=== PATIENT | male | born 1955 | race Caucasian/White ===

== ENCOUNTER 2018-07-20 10:14 | Inpatient (IN) ==
[2018-07-20] MEDS ORDERED: methylPREDNISolone SOD SUC 125 MG/2 ML VIAL IV STA (10:33)
[2018-07-20] MEDS ORDERED: ONDANSETRON 4 MG/2 ML VIAL IV ONE (10:33)
[2018-07-20] MEDS ORDERED: ALBUTEROL/IPRATROPIUM 3 ML NEB RESP TX STA (10:33)
[2018-07-20] MEDS ORDERED: ALBUTEROL 2.5 MG/3 ML NEB RESP TX STA (10:33)
[2018-07-20] MEDS ORDERED: ASPIRIN 325 MG TABLET PO STA (10:33)
[2018-07-20 10:45] LABS: Basophils # 0.1 10*3/uL (0.0-0.2); Eosinophils # 0.1 10*3/uL (0.0-0.87); Eosinophils % 0.8 % (0.00-10.9); Hematocrit 38.5 VOL% (42.0-52.0); Hemoglobin 12.7 GM/DL (14.0-18.0); Immature Granulocytes % 0.8 %; Immature Granulocytes Absolute 0.05 #; Lymphocytes # 1.1 10*3/uL (1.4-4.0); Mean Corpuscular Volume 94.4 FL (87-102); Mean Platelet Volume 8.8 FL (9.6-12.0); Monocytes % 9.9 % (1.7-12.7); Neutrophils % 69.5 % (38.7-73.9); Platelet Count 147 T/CUMM (130-400); Red Blood Count 4.08 MC/CUMM (3.8-5.5); Red Cell Distribution Width 14.5 % (9.3-17.3); White Blood Count 6.3 T/CUMM (4-12)
[2018-07-20 10:49] LABS: PT Patient Result 10.4 SECS
[2018-07-20] MEDS ORDERED: DILTIAZEM 50 MG/10 ML VIAL IV STA (10:52)
[2018-07-20 11:00] LABS: Alanine Aminotransferase 46 U/L (16-61); Albumin 3.9 G/DL (3.4-5.0); Alkaline Phosphatase 88 U/L (45-117); Aspartate Amino Transferase 60 U/L (0-37); Blood Urea Nitrogen 5 MG/DL (7-18); Calcium 8.8 MG/DL (8.5-10.1); Glucose 86 MG/DL (74-106); Total Protein 7.7 G/DL (6.4-8.3); Troponin I < 0.015 NG/ML (0.00-0.045)
[2018-07-20 11:06] LABS: ABG Base Excess 4.7 MMOL/L (-2.5-2.5); ABG HCO3 29.1 MMOL/L (20-26); ABG Oxygen Saturation 87.7 % (95-100); ABG PCO2 42.5 MM HG (35-48); ABG PH 7.454 (7.35-7.45); ABG PO2 57.8 MM HG (80-95); ABG TCO2 30.4 MMOL/L (23-27)
[2018-07-20] MEDS ORDERED: VANCOMYCIN INJ 1,000 MG in SODIUM CHLORIDE 0.9% 250 ML IV STA (11:35)
[2018-07-20] MEDS ORDERED: PIPERACILLIN/TAZOBACTAM 3,375 MG in SODIUM CHLORIDE 0.9% 100 ML IV STA (11:35)
[2018-07-20] MEDS: SODIUM CHLORIDE 0.9% 1,000 ML IV SCH ×2 (12:39→20:50)
[2018-07-20] MEDS ORDERED: ONDANSETRON 4 MG/2 ML VIAL IV PRN (15:28)
[2018-07-20] MEDS ORDERED: ACETAMINOPHEN 325 MG TABLET PO PRN (15:28)
[2018-07-20] MEDS ORDERED: SODIUM CHLORIDE 0.9% 1,000 ML IV SCH (15:30)
[2018-07-20] MEDS ORDERED: THIAMINE 200 MG/2 ML VIAL IV ONE (15:43)
[2018-07-20] MEDS: PANTOPRAZOLE 40 MG TABLET PO SCH (16:52)
[2018-07-20] MEDS ORDERED: ALUMINUM/MAGNES/SIMETH MAX STR 30 ML UDCUP PO PRN (17:47)
[2018-07-20] MEDS ORDERED: MAGNESIUM HYDROXIDE SUSP 30 ML UDCUP PO PRN (17:47)
[2018-07-20] MEDS: methylPREDNISolone SOD SUC 125 MG/2 ML VIAL IV SCH (18:07)
[2018-07-20] MEDS: ALBUTEROL/IPRATROPIUM 3 ML NEB RESP TX SCH (19:40)
[2018-07-20] MEDS: chlordiazePOXIDE 25 MG CAPSULE PO SCH (20:53)
[2018-07-20] MEDS: TAMSULOSIN 0.4 MG CAPSULE PO SCH (20:53)
[2018-07-20] MEDS: SIMVASTATIN 10 MG TABLET PO SCH (20:54)
[2018-07-20] MEDS: SERTRALINE 100 MG TABLET PO SCH (20:54)
[2018-07-20] MEDS: LORazepam 2 MG/1 ML VIAL IV PRN (20:54)
[2018-07-21] MEDS: methylPREDNISolone SOD SUC 125 MG/2 ML VIAL IV SCH ×3 (01:09→17:40)
[2018-07-21] MEDS: ALBUTEROL/IPRATROPIUM 3 ML NEB RESP TX SCH ×4 (01:12→19:23)
[2018-07-21] MEDS: LORazepam 2 MG/1 ML VIAL IV PRN (01:14)
[2018-07-21 05:30] LABS: Hematocrit 35.1 VOL% (42.0-52.0); Hemoglobin 11.8 GM/DL (14.0-18.0); Immature Granulocytes % 0.5 %; Immature Granulocytes Absolute 0.02 #; Lymphocytes # 0.2 10*3/uL (1.4-4.0); Lymphocytes % 6.1 % (21.2-54.2); Mean Corpuscular HGB Conc 33.6 GM/DL (32-36); Mean Corpuscular Volume 94.4 FL (87-102); Mean Platelet Volume 9.7 FL (9.6-12.0); Monocytes % 4.1 % (1.7-12.7); Neutrophils % 89.3 % (38.7-73.9); Platelet Count 118 T/CUMM (130-400); Red Blood Count 3.72 MC/CUMM (3.8-5.5); Red Cell Distribution Width 14.5 % (9.3-17.3); White Blood Count 3.9 T/CUMM (4-12)
[2018-07-21 06:06] LABS: Calcium 8.7 MG/DL (8.5-10.1); Osmolality,Calculated 265.4 MOS/KG (273-304)
[2018-07-21] MEDS: SODIUM CHLORIDE 0.9% 1,000 ML IV SCH ×2 (06:45→16:51)
[2018-07-21] MEDS: chlordiazePOXIDE 25 MG CAPSULE PO SCH ×3 (08:27→21:11)
[2018-07-21] MEDS: THIAMINE 100 MG TABLET PO SCH (08:27)
[2018-07-21] MEDS: MONTELUKAST 10 MG TABLET PO SCH (08:27)
[2018-07-21] MEDS: DILTIAZEM CD 240 MG CAPSULE PO SCH (08:27)
[2018-07-21] MEDS: TAMSULOSIN 0.4 MG CAPSULE PO SCH ×2 (08:27→21:13)
[2018-07-21] MEDS: PANTOPRAZOLE 40 MG TABLET PO SCH (08:27)
[2018-07-21] MEDS: MULTIVITAMIN (CENTRUM) TABLET PO SCH (08:27)
[2018-07-21] MEDS: FOLIC ACID 1 MG TABLET PO SCH (08:27)
[2018-07-21] MEDS: DIGOXIN 0.25 MG TABLET PO SCH (12:46)
[2018-07-21] MEDS: APIXABAN 5 MG TABLET PO SCH ×2 (14:34→21:11)
[2018-07-21] MEDS: FERROUS SULFATE 325 MG TABLET PO SCH ×2 (14:35→21:13)
[2018-07-21] MEDS: MAGNESIUM OXIDE 400 MG TABLET PO SCH ×2 (14:35→21:13)
[2018-07-21] MEDS: SERTRALINE 100 MG TABLET PO SCH (21:11)
[2018-07-21] MEDS: SIMVASTATIN 10 MG TABLET PO SCH (21:13)
[2018-07-21] MEDS: ALBUTEROL 2.5 MG/3 ML NEB RESP TX PRN (21:21)
[2018-07-22] MEDS: ALBUTEROL/IPRATROPIUM 3 ML NEB RESP TX SCH ×4 (01:00→20:20)
[2018-07-22] MEDS: LORazepam 2 MG/1 ML VIAL IV PRN ×4 (01:24→12:58)
[2018-07-22] MEDS: SODIUM CHLORIDE 0.9% 1,000 ML IV SCH ×4 (02:45→23:35)
[2018-07-22] MEDS: methylPREDNISolone SOD SUC 125 MG/2 ML VIAL IV SCH ×3 (03:47→17:25)
[2018-07-22] MEDS: ASPIRIN EC 81 MG TABLET PO SCH (05:35)
[2018-07-22] MEDS ORDERED: FUROSEMIDE 40 MG/4 ML VIAL IV ONE (08:06)
[2018-07-22] MEDS: LEVOFLOXACIN INJ 750 MG in PREMIX 1 EACH IV SCH (08:50)
[2018-07-22] MEDS: APIXABAN 5 MG TABLET PO SCH ×2 (08:55→20:42)
[2018-07-22] MEDS: FERROUS SULFATE 325 MG TABLET PO SCH ×2 (08:55→20:43)
[2018-07-22] MEDS: MAGNESIUM OXIDE 400 MG TABLET PO SCH ×2 (08:55→20:42)
[2018-07-22] MEDS: DILTIAZEM CD 240 MG CAPSULE PO SCH (08:55)
[2018-07-22] MEDS: MONTELUKAST 10 MG TABLET PO SCH (08:55)
[2018-07-22] MEDS: MULTIVITAMIN (CENTRUM) TABLET PO SCH (08:55)
[2018-07-22] MEDS: TAMSULOSIN 0.4 MG CAPSULE PO SCH ×2 (08:55→20:43)
[2018-07-22] MEDS: chlordiazePOXIDE 25 MG CAPSULE PO SCH ×3 (08:55→20:43)
[2018-07-22] MEDS: FOLIC ACID 1 MG TABLET PO SCH (08:55)
[2018-07-22] MEDS: THIAMINE 100 MG TABLET PO SCH (08:55)
[2018-07-22] MEDS: PANTOPRAZOLE 40 MG TABLET PO SCH (12:20)
[2018-07-22] MEDS: DIGOXIN 0.25 MG TABLET PO SCH (12:20)
[2018-07-22] MEDS: SERTRALINE 100 MG TABLET PO SCH (20:43)
[2018-07-22] MEDS: SIMVASTATIN 10 MG TABLET PO SCH (20:43)
[2018-07-23] MEDS: ALBUTEROL/IPRATROPIUM 3 ML NEB RESP TX SCH ×4 (00:40→19:25)
[2018-07-23] MEDS: methylPREDNISolone SOD SUC 125 MG/2 ML VIAL IV SCH (01:28)
[2018-07-23 05:34] LABS: Basophils % 0.1 % (0.0-0.8); Hematocrit 36.7 VOL% (42.0-52.0); Lymphocytes # 0.2 10*3/uL (1.4-4.0); Lymphocytes % 2.1 % (21.2-54.2); Mean Corpuscular HGB Conc 32.7 GM/DL (32-36); Mean Corpuscular Volume 95.3 FL (87-102); Monocytes % 2.8 % (1.7-12.7); NRBC # 0.02 10*3/uL; Platelet Count 145 T/CUMM (130-400); Red Blood Count 3.85 MC/CUMM (3.8-5.5); Red Cell Distribution Width 14.7 % (9.3-17.3); White Blood Count 9.6 T/CUMM (4-12)
[2018-07-23 05:55] LABS: Calcium 9.1 MG/DL (8.5-10.1); Osmolality,Calculated 274.8 MOS/KG (273-304)
[2018-07-23] MEDS: ASPIRIN EC 81 MG TABLET PO SCH (05:57)
[2018-07-23 06:19] LABS: Hypochromasia 1+; Lymphocytes 2 % (20-55); Segmented Neutrophils 96 % (50-85); Total Cells Counted 100
[2018-07-23 06:20] LABS: Platelet Estimate Normal
[2018-07-23] MEDS: chlordiazePOXIDE 25 MG CAPSULE PO SCH ×3 (08:22→20:54)
[2018-07-23] MEDS: MONTELUKAST 10 MG TABLET PO SCH (09:12)
[2018-07-23] MEDS: PANTOPRAZOLE 40 MG TABLET PO SCH (09:12)
[2018-07-23] MEDS: MAGNESIUM OXIDE 400 MG TABLET PO SCH ×2 (09:13→20:54)
[2018-07-23] MEDS: MULTIVITAMIN (CENTRUM) TABLET PO SCH (09:13)
[2018-07-23] MEDS: DILTIAZEM CD 240 MG CAPSULE PO SCH (09:13)
[2018-07-23] MEDS: APIXABAN 5 MG TABLET PO SCH ×2 (09:13→20:55)
[2018-07-23] MEDS: FOLIC ACID 1 MG TABLET PO SCH (09:13)
[2018-07-23] MEDS: TAMSULOSIN 0.4 MG CAPSULE PO SCH ×2 (09:14→20:54)
[2018-07-23] MEDS: LORazepam 2 MG/1 ML VIAL IV PRN ×6 (09:14→23:17)
[2018-07-23] MEDS: FERROUS SULFATE 325 MG TABLET PO SCH ×2 (09:14→20:54)
[2018-07-23] MEDS: THIAMINE 100 MG TABLET PO SCH (09:14)
[2018-07-23] MEDS: POTASSIUM CHLORIDE 20 MEQ TABLET PO PRN ×3 (09:14→17:04)
[2018-07-23] MEDS: LEVOFLOXACIN INJ 750 MG in PREMIX 1 EACH IV SCH (09:17)
[2018-07-23] MEDS: DIGOXIN 0.25 MG TABLET PO SCH (14:39)
[2018-07-23] MEDS: SERTRALINE 100 MG TABLET PO SCH (20:54)
[2018-07-23] MEDS: SIMVASTATIN 10 MG TABLET PO SCH (20:55)
[2018-07-24] MEDS: methylPREDNISolone SOD SUC 125 MG/2 ML VIAL IV SCH ×3 (03:25→20:28)
[2018-07-24] MEDS: ALBUTEROL 2.5 MG/3 ML NEB RESP TX PRN ×2 (03:50→22:43)
[2018-07-24] MEDS: LORazepam 2 MG/1 ML VIAL IV PRN ×2 (04:12→06:09)
[2018-07-24 05:38] LABS: Basophils % 0.1 % (0.0-0.8); Hematocrit 37.9 VOL% (42.0-52.0); Hemoglobin 11.9 GM/DL (14.0-18.0); Immature Granulocytes % 0.6 %; Immature Granulocytes Absolute 0.06 #; Lymphocytes % 9.6 % (21.2-54.2); Mean Corpuscular HGB Conc 31.4 GM/DL (32-36); Mean Corpuscular Volume 98.7 FL (87-102); Neutrophils % 80.7 % (38.7-73.9); Platelet Count 145 T/CUMM (130-400); Red Blood Count 3.84 MC/CUMM (3.8-5.5); Red Cell Distribution Width 15.2 % (9.3-17.3); White Blood Count 10.2 T/CUMM (4-12)
[2018-07-24 05:58] LABS: Calcium 9.3 MG/DL (8.5-10.1); Osmolality,Calculated 283.3 MOS/KG (273-304)
[2018-07-24] MEDS: ALBUTEROL/IPRATROPIUM 3 ML NEB RESP TX SCH ×4 (07:10→18:59)
[2018-07-24] MEDS: SODIUM CHLORIDE 0.9% 1,000 ML IV SCH ×3 (08:04→09:09)
[2018-07-24] MEDS: MONTELUKAST 10 MG TABLET PO SCH (08:59)
[2018-07-24] MEDS: APIXABAN 5 MG TABLET PO SCH ×2 (08:59→20:28)
[2018-07-24] MEDS: ASPIRIN EC 81 MG TABLET PO SCH (08:59)
[2018-07-24] MEDS: FOLIC ACID 1 MG TABLET PO SCH (08:59)
[2018-07-24] MEDS: MAGNESIUM OXIDE 400 MG TABLET PO SCH ×2 (08:59→20:28)
[2018-07-24] MEDS: MULTIVITAMIN (CENTRUM) TABLET PO SCH (09:00)
[2018-07-24] MEDS: DILTIAZEM CD 240 MG CAPSULE PO SCH (09:00)
[2018-07-24] MEDS: FERROUS SULFATE 325 MG TABLET PO SCH ×2 (09:01→20:28)
[2018-07-24] MEDS: PANTOPRAZOLE 40 MG TABLET PO SCH (09:01)
[2018-07-24] MEDS: POTASSIUM CHLORIDE 20 MEQ TABLET PO PRN ×3 (09:01→14:31)
[2018-07-24] MEDS: TAMSULOSIN 0.4 MG CAPSULE PO SCH ×2 (09:01→20:28)
[2018-07-24] MEDS: LEVOFLOXACIN INJ 750 MG in PREMIX 1 EACH IV SCH (09:02)
[2018-07-24] MEDS: THIAMINE 100 MG TABLET PO SCH (09:02)
[2018-07-24] MEDS: chlordiazePOXIDE 25 MG CAPSULE PO SCH ×3 (09:02→20:28)
[2018-07-24] MEDS: DIGOXIN 0.25 MG TABLET PO SCH (13:09)
[2018-07-24] MEDS: amLODIPine 5 MG TABLET PO SCH (14:31)
[2018-07-24] MEDS: SERTRALINE 100 MG TABLET PO SCH (20:28)
[2018-07-24] MEDS: SIMVASTATIN 10 MG TABLET PO SCH (20:28)
[2018-07-25] MEDS: ALBUTEROL/IPRATROPIUM 3 ML NEB RESP TX SCH ×4 (02:53→20:20)
[2018-07-25 05:17] LABS: Hematocrit 39.7 VOL% (42.0-52.0); Hemoglobin 12.2 GM/DL (14.0-18.0); Immature Granulocytes % 0.9 %; Immature Granulocytes Absolute 0.06 #; Lymphocytes # 0.2 10*3/uL (1.4-4.0); Lymphocytes % 3.5 % (21.2-54.2); Mean Corpuscular HGB Conc 30.7 GM/DL (32-36); Mean Corpuscular Volume 100.5 FL (87-102); Monocytes % 2.1 % (1.7-12.7); Neutrophils % 93.5 % (38.7-73.9); Platelet Count 154 T/CUMM (130-400); Red Blood Count 3.95 MC/CUMM (3.8-5.5); Red Cell Distribution Width 15.4 % (9.3-17.3); White Blood Count 6.8 T/CUMM (4-12)
[2018-07-25 05:49] LABS: Anisocytosis 1+; Lymphocytes 3 % (20-55); Segmented Neutrophils 96 % (50-85); Total Cells Counted 100
[2018-07-25 05:50] LABS: Platelet Estimate Adequate
[2018-07-25 05:53] LABS: Calcium 9.2 MG/DL (8.5-10.1); Osmolality,Calculated 283.4 MOS/KG (273-304)
[2018-07-25] MEDS: ASPIRIN EC 81 MG TABLET PO SCH (06:30)
[2018-07-25] MEDS: MAGNESIUM OXIDE 400 MG TABLET PO SCH ×2 (08:50→20:36)
[2018-07-25] MEDS: LEVOFLOXACIN INJ 750 MG in PREMIX 1 EACH IV SCH (09:42)
[2018-07-25] MEDS: FOLIC ACID 1 MG TABLET PO SCH (09:43)
[2018-07-25] MEDS: THIAMINE 100 MG TABLET PO SCH (09:43)
[2018-07-25] MEDS: APIXABAN 5 MG TABLET PO SCH ×2 (09:43→20:37)
[2018-07-25] MEDS: amLODIPine 5 MG TABLET PO SCH (09:43)
[2018-07-25] MEDS: DILTIAZEM CD 240 MG CAPSULE PO SCH (09:43)
[2018-07-25] MEDS: MONTELUKAST 10 MG TABLET PO SCH (09:43)
[2018-07-25] MEDS: FERROUS SULFATE 325 MG TABLET PO SCH ×2 (09:44→20:36)
[2018-07-25] MEDS: chlordiazePOXIDE 25 MG CAPSULE PO SCH ×3 (09:44→20:41)
[2018-07-25] MEDS: TAMSULOSIN 0.4 MG CAPSULE PO SCH ×2 (09:44→20:36)
[2018-07-25] MEDS: methylPREDNISolone SOD SUC 125 MG/2 ML VIAL IV SCH (09:44)
[2018-07-25] MEDS: POTASSIUM CHLORIDE 20 MEQ TABLET PO PRN (09:44)
[2018-07-25] MEDS: MULTIVITAMIN (CENTRUM) TABLET PO SCH (09:44)
[2018-07-25] MEDS: PANTOPRAZOLE 40 MG TABLET PO SCH (09:44)
[2018-07-25] MEDS: DIGOXIN 0.25 MG TABLET PO SCH (12:41)
[2018-07-25] MEDS: SIMVASTATIN 10 MG TABLET PO SCH (20:36)
[2018-07-25] MEDS: SERTRALINE 100 MG TABLET PO SCH (20:36)
[2018-07-26] MEDS: ALBUTEROL/IPRATROPIUM 3 ML NEB RESP TX SCH ×2 (00:27→07:32)
[2018-07-26] MEDS: LORazepam 2 MG/1 ML VIAL IV PRN (04:46)
[2018-07-26] MEDS: ASPIRIN EC 81 MG TABLET PO SCH (06:07)
[2018-07-26] MEDS: MULTIVITAMIN (CENTRUM) TABLET PO SCH (08:56)
[2018-07-26] MEDS: MAGNESIUM OXIDE 400 MG TABLET PO SCH (08:56)
[2018-07-26] MEDS: FOLIC ACID 1 MG TABLET PO SCH (08:56)
[2018-07-26] MEDS: FERROUS SULFATE 325 MG TABLET PO SCH (08:57)
[2018-07-26] MEDS: MONTELUKAST 10 MG TABLET PO SCH (08:57)
[2018-07-26] MEDS: amLODIPine 5 MG TABLET PO SCH (08:57)
[2018-07-26] MEDS: APIXABAN 5 MG TABLET PO SCH (08:57)
[2018-07-26] MEDS: DILTIAZEM CD 240 MG CAPSULE PO SCH (08:57)
[2018-07-26] MEDS: LEVOFLOXACIN INJ 750 MG in PREMIX 1 EACH IV SCH (08:57)
[2018-07-26] MEDS: chlordiazePOXIDE 25 MG CAPSULE PO SCH (08:57)
[2018-07-26] MEDS: TAMSULOSIN 0.4 MG CAPSULE PO SCH (08:57)
[2018-07-26] MEDS: THIAMINE 100 MG TABLET PO SCH (08:57)
[2018-07-26] MEDS: PANTOPRAZOLE 40 MG TABLET PO SCH (08:57)
[2018-07-26] MEDS ORDERED: methylPREDNISolone SOD SUC 125 MG/2 ML VIAL IV SCH (09:00)
[2018-07-26 11:35] VITALS: BP 118/101
== END 2018-07-26 12:45 | disposition home or self-care (01) | DRG 190 ==
LOC: EDUNIT# → N.ED 10:14 → N.EDINP 15:28 → SUATTDRO 15:28 → N.ICU 19:35 → N.5E 07-22 20:01
PROVIDERS: ADMIT Internal Medicine; ATTEND Internal Medicine

== ENCOUNTER 2022-02-06 06:28 | Inpatient (IN) ==
[2022-02-06 06:54] LABS: Basophils % 0.3 % (0.0-0.8); Eosinophils # 0.1 10*3/uL (0.0-0.87); Eosinophils % 0.7 % (0.00-10.9); Hematocrit 36.2 VOL% (42.0-52.0); Hemoglobin 12.9 GM/DL (14.0-18.0); Immature Granulocytes % 0.6 %; Immature Granulocytes Absolute 0.05 #; Lymphocytes # 0.8 10*3/uL (1.4-4.0); Lymphocytes % 8.5 % (21.2-54.2); Mean Corpuscular HGB Conc 35.6 GM/DL (32-36); Mean Corpuscular Volume 94.8 FL (87-102); Mean Platelet Volume 9.1 FL (9.6-12.0); Monocytes # 1.1 10*3/uL (0.11-0.8); Monocytes % 12.1 % (1.7-12.7); Neutrophils % 77.8 % (38.7-73.9); Platelet Count 210 T/CUMM (130-400); Red Blood Count 3.82 MC/CUMM (3.8-5.5); Red Cell Distribution Width 12.8 % (9.3-17.3); White Blood Count 8.8 T/CUMM (4-12)
[2022-02-06 07:09] LABS: Bilirubin,Urine Negative (Negative); Blood, Urine Negative (Negative); Glucose,Urine (UA) Negative (Negative); Ketones,Urine Trace mg/dL (Negative); Nitrite,Urine Negative (Negative); Protein,Urine 30 mg/dL (Negative); RBC,Urine 2 /HPF (0-4); Urine Appearance Clear (Clear); Urine Color Yellow (Yellow); Urine Specific Gravity 1.015 (1.001-1.035); Urine Urobilinogen 0.2 eU/dL (<2.0); Urine pH 6.5 (4.5-8.0)
[2022-02-06 07:10] LABS: INR 1.1; PT Patient Result 11.9 SECS (10.1-12.1); Partial Thromboplastin Time 31.3 SECS (23.7-32.9)
[2022-02-06 07:25] LABS: Albumin 3.5 G/DL (3.4-5.0); Bilirubin,Total 0.7 MG/DL (0.20-1.00); Calcium 8.4 MG/DL (8.5-10.1); Osmolality,Calculated 232.8 MOS/KG (273-304); Potassium 4.8 MMOL/L (3.5-5.1); Total Protein 7.3 G/DL (6.4-8.2)
[2022-02-06] MEDS ORDERED: methylPREDNISolone SOD SUC 125 MG/2 ML VIAL IV STA (07:29)
[2022-02-06] MEDS ORDERED: LEVOFLOXACIN INJ 500 MG/100 ML PREMIX IV STA (07:29)
[2022-02-06] MEDS ORDERED: ALBUTEROL 2.5 MG/3 ML NEB RESP TX STA (07:30)
[2022-02-06] MEDS: SODIUM CHLORIDE 0.9% 1,000 ML IV SCH ×2 (08:11→20:25)
[2022-02-06] MEDS ORDERED: ONDANSETRON 4 MG/2 ML VIAL IV PRN (11:15)
[2022-02-06] MEDS ORDERED: ALBUTEROL 0.63 MG/3 ML NEB RESP TX PRN (11:22)
[2022-02-06 11:25] LABS: Calcium 8.5 MG/DL (8.5-10.1); Osmolality,Calculated 245.8 MOS/KG (273-304); Potassium 4.7 MMOL/L (3.5-5.1)
[2022-02-06] MEDS ORDERED: LORazepam 1 MG TABLET PO PRN (11:27)
[2022-02-06] MEDS ORDERED: cefTRIAXone 1,000 MG in SYRINGE 1 EACH IV SCH (11:30)
[2022-02-06] MEDS ORDERED: MELATONIN 3 MG TABLET PO PRN (11:48)
[2022-02-06] MEDS ORDERED: FERROUS SULFATE 325 MG TABLET PO SCH (12:00)
[2022-02-06] MEDS: ASCORBIC ACID 500 MG TABLET PO SCH (12:25)
[2022-02-06] MEDS: APIXABAN 5 MG TABLET PO SCH ×2 (12:25→20:25)
[2022-02-06] MEDS: LOSARTAN 25 MG TABLET PO SCH (12:25)
[2022-02-06] MEDS: FOLIC ACID 1 MG TABLET PO SCH (12:25)
[2022-02-06] MEDS: THIAMINE 100 MG TABLET PO SCH (12:25)
[2022-02-06] MEDS: chlordiazePOXIDE 25 MG CAPSULE PO SCH ×2 (12:25→23:10)
[2022-02-06] MEDS: DILTIAZEM CD 120 MG CAPSULE PO SCH (12:25)
[2022-02-06] MEDS: DOXYCYCLINE HYCLATE INJ 100 MG in SODIUM CHLORIDE 0.9% 100 ML IV SCH ×2 (12:40→23:09)
[2022-02-06] MEDS: DIGOXIN 0.125 MG TABLET PO SCH (15:45)
[2022-02-06] MEDS: BUDESONIDE/FORMOTEROL 160-4.5 INHALER 6 GM INH SCH ×2 (15:46→20:35)
[2022-02-06] MEDS: FLUTICASONE 50 MCG NASAL SPRAY 16 GM BOTTLE BOTH NARES SCH (15:46)
[2022-02-06] MEDS: FERROUS SULFATE 325 MG TABLET PO SCH (17:25)
[2022-02-06] MEDS: SERTRALINE 25 MG TABLET PO SCH (20:24)
[2022-02-06] MEDS: SIMVASTATIN 10 MG TABLET PO SCH (20:24)
[2022-02-06] MEDS: TAMSULOSIN 0.4 MG CAPSULE PO SCH (20:24)
[2022-02-07 05:58] LABS: Basophils % 0.1 % (0.0-0.8); Hematocrit 38.3 VOL% (42.0-52.0); Hemoglobin 13.2 GM/DL (14.0-18.0); Immature Granulocytes % 0.7 %; Immature Granulocytes Absolute 0.07 #; Lymphocytes # 0.7 10*3/uL (1.4-4.0); Lymphocytes % 6.8 % (21.2-54.2); Mean Corpuscular HGB Conc 34.5 GM/DL (32-36); Mean Corpuscular Volume 99.2 FL (87-102); Mean Platelet Volume 9.1 FL (9.6-12.0); Monocytes % 10.4 % (1.7-12.7); Platelet Count 222 T/CUMM (130-400); Red Blood Count 3.86 MC/CUMM (3.8-5.5); Red Cell Distribution Width 13.3 % (9.3-17.3); White Blood Count 9.9 T/CUMM (4-12)
[2022-02-07 06:09] LABS: PT Patient Result 11.5 SECS (10.1-12.1); Partial Thromboplastin Time 27.6 SECS (23.7-32.9)
[2022-02-07 06:17] LABS: Calcium 8.4 MG/DL (8.5-10.1); Osmolality,Calculated 263.7 MOS/KG (273-304); Potassium 4.5 MMOL/L (3.5-5.1)
[2022-02-07 06:32] LABS: Folate > 24.00 NG/ML (5.38-24.0); Vitamin B12 566 PG/ML (211-911)
[2022-02-07] MEDS: APIXABAN 5 MG TABLET PO SCH ×2 (09:16→20:43)
[2022-02-07] MEDS: FERROUS SULFATE 325 MG TABLET PO SCH ×2 (09:16→16:51)
[2022-02-07] MEDS: LOSARTAN 25 MG TABLET PO SCH (09:16)
[2022-02-07] MEDS: FOLIC ACID 1 MG TABLET PO SCH (09:16)
[2022-02-07] MEDS: THIAMINE 100 MG TABLET PO SCH (09:16)
[2022-02-07] MEDS: MONTELUKAST 10 MG TABLET PO SCH (09:16)
[2022-02-07] MEDS: TAMSULOSIN 0.4 MG CAPSULE PO SCH ×2 (09:16→20:44)
[2022-02-07] MEDS: MULTIVITAMIN (CENTRUM) TABLET PO SCH (09:16)
[2022-02-07] MEDS: ASPIRIN EC 81 MG TABLET PO SCH (09:16)
[2022-02-07] MEDS: ASCORBIC ACID 500 MG TABLET PO SCH (09:17)
[2022-02-07] MEDS: DILTIAZEM CD 120 MG CAPSULE PO SCH (09:17)
[2022-02-07] MEDS: FLUTICASONE 50 MCG NASAL SPRAY 16 GM BOTTLE BOTH NARES SCH (09:20)
[2022-02-07] MEDS: BUDESONIDE/FORMOTEROL 160-4.5 INHALER 6 GM INH SCH ×2 (09:20→21:04)
[2022-02-07] MEDS: FUROSEMIDE 40 MG TABLET PO SCH (11:16)
[2022-02-07] MEDS: chlordiazePOXIDE 25 MG CAPSULE PO SCH ×2 (11:16→23:03)
[2022-02-07] MEDS: cefTRIAXone 1,000 MG in SODIUM CHLORIDE 0.9% 100 ML IV SCH (11:17)
[2022-02-07] MEDS: DIGOXIN 0.125 MG TABLET PO SCH (12:02)
[2022-02-07] MEDS: POTASSIUM CHLORIDE 20 MEQ TABLET PO SCH (12:02)
[2022-02-07] MEDS: DOXYCYCLINE HYCLATE INJ 100 MG in SODIUM CHLORIDE 0.9% 100 ML IV SCH ×2 (12:02→23:03)
[2022-02-07] MEDS: SERTRALINE 25 MG TABLET PO SCH (20:44)
[2022-02-07] MEDS: SIMVASTATIN 10 MG TABLET PO SCH (20:44)
[2022-02-08 04:58] LABS: Basophils % 0.5 % (0.0-0.8); Eosinophils % 0.3 % (0.00-10.9); Hematocrit 35.5 VOL% (42.0-52.0); Hemoglobin 11.7 GM/DL (14.0-18.0); Immature Granulocytes % 0.8 %; Immature Granulocytes Absolute 0.07 #; Lymphocytes % 10.8 % (21.2-54.2); Mean Corpuscular Volume 101.1 FL (87-102); Mean Platelet Volume 9.2 FL (9.6-12.0); Monocytes # 1.3 10*3/uL (0.11-0.8); Monocytes % 14.7 % (1.7-12.7); Neutrophils % 72.9 % (38.7-73.9); Platelet Count 202 T/CUMM (130-400); Red Blood Count 3.51 MC/CUMM (3.8-5.5); Red Cell Distribution Width 13.5 % (9.3-17.3); White Blood Count 8.9 T/CUMM (4-12)
[2022-02-08 05:27] LABS: Calcium 8.5 MG/DL (8.5-10.1); Potassium 4.3 MMOL/L (3.5-5.1)
[2022-02-08] MEDS: FERROUS SULFATE 325 MG TABLET PO SCH ×2 (08:35→16:12)
[2022-02-08] MEDS: DILTIAZEM CD 120 MG CAPSULE PO SCH (08:35)
[2022-02-08] MEDS: ASPIRIN EC 81 MG TABLET PO SCH (08:35)
[2022-02-08] MEDS: FOLIC ACID 1 MG TABLET PO SCH (08:36)
[2022-02-08] MEDS: MULTIVITAMIN (CENTRUM) TABLET PO SCH (08:36)
[2022-02-08] MEDS: TAMSULOSIN 0.4 MG CAPSULE PO SCH ×2 (08:36→20:33)
[2022-02-08] MEDS: POTASSIUM CHLORIDE 20 MEQ TABLET PO SCH (08:36)
[2022-02-08] MEDS: LOSARTAN 25 MG TABLET PO SCH (08:36)
[2022-02-08] MEDS: FUROSEMIDE 40 MG TABLET PO SCH (08:36)
[2022-02-08] MEDS: APIXABAN 5 MG TABLET PO SCH ×2 (08:36→20:33)
[2022-02-08] MEDS: FLUTICASONE 50 MCG NASAL SPRAY 16 GM BOTTLE BOTH NARES SCH (08:36)
[2022-02-08] MEDS: MONTELUKAST 10 MG TABLET PO SCH (08:37)
[2022-02-08] MEDS: cefTRIAXone 1,000 MG in SODIUM CHLORIDE 0.9% 100 ML IV SCH (08:37)
[2022-02-08] MEDS: BUDESONIDE/FORMOTEROL 160-4.5 INHALER 6 GM INH SCH ×2 (08:37→20:34)
[2022-02-08] MEDS: CHOLECALCIFEROL 1,000 UNIT TABLET PO SCH (08:38)
[2022-02-08] MEDS: ASCORBIC ACID 500 MG TABLET PO SCH (08:38)
[2022-02-08] MEDS: THIAMINE 100 MG TABLET PO SCH (08:38)
[2022-02-08] MEDS: DOXYCYCLINE HYCLATE INJ 100 MG in SODIUM CHLORIDE 0.9% 100 ML IV SCH ×2 (11:16→23:45)
[2022-02-08] MEDS: chlordiazePOXIDE 25 MG CAPSULE PO SCH ×2 (11:43→23:43)
[2022-02-08] MEDS: DIGOXIN 0.125 MG TABLET PO SCH (12:15)
[2022-02-08] MEDS: SIMVASTATIN 10 MG TABLET PO SCH (20:33)
[2022-02-08] MEDS: SERTRALINE 25 MG TABLET PO SCH (20:35)
[2022-02-09 06:41] LABS: Basophils # 0.1 10*3/uL (0.0-0.2); Basophils % 0.9 % (0.0-0.8); Eosinophils # 0.1 10*3/uL (0.0-0.87); Eosinophils % 1.5 % (0.00-10.9); Hematocrit 35.1 VOL% (42.0-52.0); Immature Granulocytes % 0.7 %; Immature Granulocytes Absolute 0.06 #; Lymphocytes # 1.1 10*3/uL (1.4-4.0); Lymphocytes % 12.3 % (21.2-54.2); Mean Corpuscular HGB Conc 34.2 GM/DL (32-36); Mean Corpuscular Volume 102.9 FL (87-102); Monocytes # 1.4 10*3/uL (0.11-0.8); Monocytes % 16.4 % (1.7-12.7); Neutrophils % 68.2 % (38.7-73.9); Platelet Count 199 T/CUMM (130-400); Red Blood Count 3.41 MC/CUMM (3.8-5.5); Red Cell Distribution Width 13.8 % (9.3-17.3); White Blood Count 8.6 T/CUMM (4-12)
[2022-02-09 06:57] LABS: Calcium 8.4 MG/DL (8.5-10.1); Potassium 4.1 MMOL/L (3.5-5.1)
[2022-02-09 07:04] LABS: Osmolality,Calculated 268.2 MOS/KG (273-304)
[2022-02-09 07:08] LABS: Band Neutrophils 1 % (0-10); Eosinophils 1 % (0-10); Hypochromia Slight; Lymphocytes 14 % (20-55); Microcytosis Slight; Platelet Estimate Adequate; Total Cells Counted 100
[2022-02-09] MEDS: MULTIVITAMIN (CENTRUM) TABLET PO SCH (09:47)
[2022-02-09] MEDS: CHOLECALCIFEROL 1,000 UNIT TABLET PO SCH (09:47)
[2022-02-09] MEDS: ASPIRIN EC 81 MG TABLET PO SCH (09:47)
[2022-02-09] MEDS: TAMSULOSIN 0.4 MG CAPSULE PO SCH ×2 (09:47→21:46)
[2022-02-09] MEDS: FUROSEMIDE 40 MG TABLET PO SCH (09:47)
[2022-02-09] MEDS: APIXABAN 5 MG TABLET PO SCH ×2 (09:47→21:46)
[2022-02-09] MEDS: DILTIAZEM CD 120 MG CAPSULE PO SCH (09:48)
[2022-02-09] MEDS: MONTELUKAST 10 MG TABLET PO SCH (09:48)
[2022-02-09] MEDS: LOSARTAN 25 MG TABLET PO SCH (09:48)
[2022-02-09] MEDS: THIAMINE 100 MG TABLET PO SCH (09:48)
[2022-02-09] MEDS: FERROUS SULFATE 325 MG TABLET PO SCH ×2 (09:48→17:17)
[2022-02-09] MEDS: ASCORBIC ACID 500 MG TABLET PO SCH (09:48)
[2022-02-09] MEDS: FOLIC ACID 1 MG TABLET PO SCH (09:48)
[2022-02-09] MEDS: POTASSIUM CHLORIDE 20 MEQ TABLET PO SCH (09:48)
[2022-02-09] MEDS: cefTRIAXone 1,000 MG in SODIUM CHLORIDE 0.9% 100 ML IV SCH (09:52)
[2022-02-09] MEDS: BUDESONIDE/FORMOTEROL 160-4.5 INHALER 6 GM INH SCH ×2 (10:04→21:46)
[2022-02-09] MEDS: FLUTICASONE 50 MCG NASAL SPRAY 16 GM BOTTLE BOTH NARES SCH (10:04)
[2022-02-09] MEDS: DOXYCYCLINE HYCLATE INJ 100 MG in SODIUM CHLORIDE 0.9% 100 ML IV SCH (12:03)
[2022-02-09] MEDS: chlordiazePOXIDE 25 MG CAPSULE PO SCH (12:04)
[2022-02-09] MEDS: DIGOXIN 0.125 MG TABLET PO SCH (13:00)
[2022-02-09] MEDS: SIMVASTATIN 10 MG TABLET PO SCH (21:46)
[2022-02-09] MEDS: SERTRALINE 25 MG TABLET PO SCH (21:46)
[2022-02-10] MEDS: DOXYCYCLINE HYCLATE INJ 100 MG in SODIUM CHLORIDE 0.9% 100 ML IV SCH ×2 (00:18→11:28)
[2022-02-10] MEDS: chlordiazePOXIDE 25 MG CAPSULE PO SCH ×2 (00:19→11:28)
[2022-02-10 05:41] LABS: Basophils # 0.1 10*3/uL (0.0-0.2); Basophils % 0.8 % (0.0-0.8); Eosinophils # 0.2 10*3/uL (0.0-0.87); Eosinophils % 2.7 % (0.00-10.9); Hematocrit 36.9 VOL% (42.0-52.0); Hemoglobin 12.2 GM/DL (14.0-18.0); Immature Granulocytes % 0.5 %; Immature Granulocytes Absolute 0.04 #; Lymphocytes % 14.1 % (21.2-54.2); Mean Corpuscular HGB Conc 33.1 GM/DL (32-36); Mean Corpuscular Volume 102.5 FL (87-102); Mean Platelet Volume 8.8 FL (9.6-12.0); Monocytes # 1.2 10*3/uL (0.11-0.8); Monocytes % 15.7 % (1.7-12.7); Neutrophils % 66.2 % (38.7-73.9); Platelet Count 205 T/CUMM (130-400); Red Cell Distribution Width 13.6 % (9.3-17.3); White Blood Count 7.3 T/CUMM (4-12)
[2022-02-10 06:03] LABS: Calcium 8.6 MG/DL (8.5-10.1); Osmolality,Calculated 270.1 MOS/KG (273-304); Potassium 3.9 MMOL/L (3.5-5.1)
[2022-02-10 06:06] LABS: Band Neutrophils 1 % (0-10); Eosinophils 1 % (0-10); Lymphocytes 11 % (20-55); Platelet Estimate Adequate; Total Cells Counted 100
[2022-02-10] MEDS: TAMSULOSIN 0.4 MG CAPSULE PO SCH ×2 (09:14→20:05)
[2022-02-10] MEDS: FUROSEMIDE 40 MG TABLET PO SCH (09:14)
[2022-02-10] MEDS: ASPIRIN EC 81 MG TABLET PO SCH (09:14)
[2022-02-10] MEDS: ASCORBIC ACID 500 MG TABLET PO SCH (09:14)
[2022-02-10] MEDS: CHOLECALCIFEROL 1,000 UNIT TABLET PO SCH (09:14)
[2022-02-10] MEDS: APIXABAN 5 MG TABLET PO SCH ×2 (09:14→20:05)
[2022-02-10] MEDS: DILTIAZEM CD 120 MG CAPSULE PO SCH (09:15)
[2022-02-10] MEDS: MONTELUKAST 10 MG TABLET PO SCH (09:15)
[2022-02-10] MEDS: THIAMINE 100 MG TABLET PO SCH (09:15)
[2022-02-10] MEDS: FOLIC ACID 1 MG TABLET PO SCH (09:15)
[2022-02-10] MEDS: LOSARTAN 25 MG TABLET PO SCH (09:15)
[2022-02-10] MEDS: POTASSIUM CHLORIDE 20 MEQ TABLET PO SCH (09:15)
[2022-02-10] MEDS: FERROUS SULFATE 325 MG TABLET PO SCH ×2 (09:15→16:45)
[2022-02-10] MEDS: MULTIVITAMIN (CENTRUM) TABLET PO SCH (09:15)
[2022-02-10] MEDS: BUDESONIDE/FORMOTEROL 160-4.5 INHALER 6 GM INH SCH ×2 (09:18→20:05)
[2022-02-10] MEDS: FLUTICASONE 50 MCG NASAL SPRAY 16 GM BOTTLE BOTH NARES SCH (09:18)
[2022-02-10] MEDS: cefTRIAXone 1,000 MG in SODIUM CHLORIDE 0.9% 100 ML IV SCH (09:19)
[2022-02-10] MEDS: DIGOXIN 0.125 MG TABLET PO SCH (12:59)
[2022-02-10] MEDS: SIMVASTATIN 10 MG TABLET PO SCH (20:05)
[2022-02-10] MEDS: SERTRALINE 25 MG TABLET PO SCH (20:05)
[2022-02-11] MEDS: chlordiazePOXIDE 25 MG CAPSULE PO SCH ×2 (01:24→11:07)
[2022-02-11] MEDS: DOXYCYCLINE HYCLATE INJ 100 MG in SODIUM CHLORIDE 0.9% 100 ML IV SCH ×2 (01:24→10:32)
[2022-02-11 06:03] LABS: Basophils # 0.1 10*3/uL (0.0-0.2); Basophils % 0.7 % (0.0-0.8); Eosinophils # 0.2 10*3/uL (0.0-0.87); Eosinophils % 3.1 % (0.00-10.9); Hematocrit 37.1 VOL% (42.0-52.0); Hemoglobin 12.1 GM/DL (14.0-18.0); Immature Granulocytes % 0.5 %; Immature Granulocytes Absolute 0.04 #; Lymphocytes # 0.9 10*3/uL (1.4-4.0); Mean Corpuscular HGB Conc 32.6 GM/DL (32-36); Mean Corpuscular Volume 102.5 FL (87-102); Mean Platelet Volume 8.7 FL (9.6-12.0); Monocytes # 1.2 10*3/uL (0.11-0.8); Monocytes % 15.6 % (1.7-12.7); Neutrophils % 68.1 % (38.7-73.9); Platelet Count 199 T/CUMM (130-400); Red Blood Count 3.62 MC/CUMM (3.8-5.5); Red Cell Distribution Width 13.6 % (9.3-17.3); White Blood Count 7.5 T/CUMM (4-12)
[2022-02-11 06:17] LABS: Calcium 8.5 MG/DL (8.5-10.1); Osmolality,Calculated 276.7 MOS/KG (273-304); Potassium 4.1 MMOL/L (3.5-5.1)
[2022-02-11 06:32] LABS: Anisocytosis Slight; Band Neutrophils 2 % (0-10); Eosinophils 2 % (0-10); Lymphocytes 13 % (20-55); Platelet Estimate Normal; Total Cells Counted 100
[2022-02-11 06:33] LABS: Macrocytosis 1+
[2022-02-11] MEDS: FERROUS SULFATE 325 MG TABLET PO SCH (08:55)
[2022-02-11] MEDS: ASPIRIN EC 81 MG TABLET PO SCH (08:56)
[2022-02-11] MEDS: FOLIC ACID 1 MG TABLET PO SCH (08:57)
[2022-02-11] MEDS: MULTIVITAMIN (CENTRUM) TABLET PO SCH (08:57)
[2022-02-11] MEDS: DILTIAZEM CD 120 MG CAPSULE PO SCH (08:57)
[2022-02-11] MEDS: LOSARTAN 25 MG TABLET PO SCH (08:57)
[2022-02-11] MEDS: APIXABAN 5 MG TABLET PO SCH (08:57)
[2022-02-11] MEDS: TAMSULOSIN 0.4 MG CAPSULE PO SCH (08:57)
[2022-02-11] MEDS: POTASSIUM CHLORIDE 20 MEQ TABLET PO SCH (08:57)
[2022-02-11] MEDS: FLUTICASONE 50 MCG NASAL SPRAY 16 GM BOTTLE BOTH NARES SCH (08:57)
[2022-02-11] MEDS: MONTELUKAST 10 MG TABLET PO SCH (08:58)
[2022-02-11] MEDS: cefTRIAXone 1,000 MG in SODIUM CHLORIDE 0.9% 100 ML IV SCH (08:58)
[2022-02-11] MEDS: FUROSEMIDE 40 MG TABLET PO SCH (08:58)
[2022-02-11] MEDS: BUDESONIDE/FORMOTEROL 160-4.5 INHALER 6 GM INH SCH (08:58)
[2022-02-11] MEDS: CHOLECALCIFEROL 1,000 UNIT TABLET PO SCH (08:59)
[2022-02-11] MEDS: THIAMINE 100 MG TABLET PO SCH (08:59)
[2022-02-11] MEDS: ASCORBIC ACID 500 MG TABLET PO SCH (08:59)
[2022-02-11] MEDS: DIGOXIN 0.125 MG TABLET PO SCH (12:01)
[2022-02-11 13:39] VITALS: BP 132/84
== END 2022-02-11 16:21 | disposition home or self-care (01) | DRG 190 ==
LOC: EDBD → EDUNIT# → N.ED 06:28 → N.EDINP 11:14 → SUATTDRO 11:14 → N.2E 13:02
PROVIDERS: ADMIT Internal Medicine; ATTEND Hospitalist